=== PATIENT | male | born 1965 | race African-American/Black ===

== ENCOUNTER 2021-06-14 09:13 | Inpatient (IN) | payer OTHER ==
[2021-06-14] MEDS ORDERED: MELATONIN 5 MG TABLETS PO PRN (10:22)
[2021-06-14] MEDS ORDERED: BISMUTH SUBSALICYLATE 524 MG/30 ML PO PRN (10:22)
[2021-06-14] MEDS ORDERED: ACETAMINOPHEN 325 MG TABLET (FP) PO PRN ×2 (10:22)
[2021-06-14] MEDS ORDERED: MAG HYDROX/AL HYDROX/SIMETH 30 ML UNIT-DOSE CUP PO PRN (10:22)
[2021-06-14] MEDS ORDERED: ONDANSETRON *ODT* 4 MG TABLET SL PRN (10:22)
[2021-06-14] MEDS ORDERED: LOPERAMIDE HCL 2 MG CAPSULE PO PRN (10:22)
[2021-06-14] MEDS ORDERED: DICYCLOMINE HCL 10 MG CAPSULE PO PRN (10:22)
[2021-06-14] MEDS ORDERED: MAGNESIUM CITRATE 300 ML BOTTLE PO PRN (10:22)
[2021-06-14] MEDS ORDERED: MAGNESIUM HYDROX 2400MG/30ML ORAL SUSPENSION 30 ML CUP PO PRN (10:22)
[2021-06-14] MEDS ORDERED: BENZOCAINE/MENTHOL (CHLORASEPTIC ) LOZENGE MM PRN (10:22)
[2021-06-14] MEDS ORDERED: hydrOXYzine PAMOATE 25 MG CAPSULE (FP) PO PRN ×2 (10:22→18:05)
[2021-06-14] MEDS ORDERED: IBUPROFEN 400 MG TABLET (FP) PO PRN (10:22)
[2021-06-14] MEDS ORDERED: METHOCARBAMOL 500 MG TABLET PO PRN (10:22)
[2021-06-14] MEDS ORDERED: diazePAM 5 MG TABLET PO PRN (10:24)
[2021-06-14 10:53] VITALS: BMI 18.3
[2021-06-14] MEDS: INSULIN SLIDING SCALE (NOVOLOG) 1 VIAL SQ SCH ×3 (14:14→22:46)
[2021-06-14] MEDS ORDERED: OLANZapine 10 MG TABLET PO SCH (22:00)
[2021-06-14] MEDS ORDERED: THIAMINE HCL 100 MG TABLET (FP) PO SCH (22:00)
[2021-06-14] MEDS ORDERED: INSULIN (LEVEMIR) 100 UNITS/ML UNITS SQ SCH (22:00)
[2021-06-15] MEDS: INSULIN SLIDING SCALE (NOVOLOG) 1 VIAL SQ SCH ×2 (06:51→11:54)
[2021-06-15] MEDS ORDERED: diazePAM 5 MG TABLET PO PRN (09:02)
[2021-06-15] MEDS ORDERED: SERTRALINE HCL 50 MG TABLET (FP) PO SCH (10:00)
[2021-06-15] MEDS ORDERED: PRENATAL VITAMINS W/ FOLIC ACID TABLET (FP) PO SCH (10:00)
[2021-06-15] MEDS ORDERED: diazePAM 5 MG TABLET PO SCH (11:00)
[2021-06-15] MEDS: diazePAM 5 MG TABLET PO SCH ×2 (11:04→18:54)
[2021-06-15 11:31] LABS: HEMATOCRIT 39.2 % (35.4-49); HEMOGLOBIN 13.3 GM/dL (11.7-16.9); MCH 30.7 pg (25.7-33.7); MEAN CELL VOLUME 90.2 fl (80-96); MEAN PLT VOLUME 10.5 fl (7.5-11.1); PLATELET COUNT 69 10^3/uL (134-434); RBC 4.35 M/mm3 (4.00-5.60); RDW 16.1 % (11.9-15.9); WHITE BLOOD COUNT 3.7 K/mm3 (4.0-10.0)
[2021-06-15 11:46] LABS: ALBUMIN 2.9 g/dl (3.4-5.0); BLOOD UREA NITROGEN 12.4 mg/dL (7-18); CALCIUM 9.1 mg/dL (8.5-10.1)
[2021-06-15 11:49] LABS: CREATININE 1.1 mg/dL (0.55-1.3)
[2021-06-15 11:50] LABS: BILIRUBIN,TOTAL 4.8 mg/dL (0.2-1); TOT PROT 6.1 g/dl (6.4-8.2)
[2021-06-15] MEDS ORDERED: POTASSIUM CHLORIDE ORAL LIQUID 20 MEQ/15 ML PO ONE ×2 (15:00→19:00)
[2021-06-15] MEDS ORDERED: ALBUTEROL SO4 HFA INHALER IH PRN (15:31)
[2021-06-15] MEDS ORDERED: ALBUTEROL SO4 0.083% IH SOL 2.5 MG/3 ML VIAL.NEB. NEB PRN (15:35)
[2021-06-15 15:46] VITALS: BP 124/80; PULSE 90; TEMP 97.5
[2021-06-15] MEDS ORDERED: INSULIN SLIDING SCALE (NOVOLOG) 1 VIAL SQ SCH (16:30)
[2021-06-16] MEDS ORDERED: diazePAM 5 MG TABLET PO SCH ×2 (06:00)
[2021-06-17] MEDS ORDERED: diazePAM 5 MG TABLET PO SCH ×2 (06:00)
[2021-06-18] MEDS ORDERED: diazePAM 5 MG TABLET PO ONE ×2 (06:00)
== END 2021-06-15 23:55 | disposition short-term general hospital (02) | DRG 775 ==
LOC: YASAS 09:13 → Y6N 10:59 → UNDOADMIN 10:59 → Y6N 17:23
PROVIDERS: ADMIT Allergy & Immunology; ATTEND Allergy & Immunology
PROC: HZ2ZZZZ Detoxification Services for Substance Abuse Treatment (ICD-10-PCS; principal; 2021-06-14)
DX: F10.230 Alcohol dependence with withdrawal, uncomplicated (principal); F10.220 Alcohol dependence with intoxication, uncomplicated; F17.210 Nicotine dependence, cigarettes, uncomplicated; F20.9 Schizophrenia, unspecified; R17 Unspecified jaundice; E11.65 Type 2 diabetes mellitus with hyperglycemia; Z79.4 Long term (current) use of insulin; R06.00 Dyspnea, unspecified; R05.9 Cough, unspecified; R10.11 Right upper quadrant pain; Z62.810 Personal history of physical and sexual abuse in childhood; Z91.410 Personal history of adult physical and sexual abuse; Z91.014 Allergy to mammalian meats; Z59.01 Sheltered homelessness
CPT/HCPCS: 36415; 71101-TC-RT-FY; 80053; 82962; 85027; 86780; 87811; 93005; 93010; C9803-CS; U0003; U0005

== ENCOUNTER 2021-06-15 16:56 | Inpatient (IN) | payer OTHER ==
[2021-06-15] MEDS ORDERED: SODIUM CHLORIDE 0.9% 500 ML INFUS.BAG IV ONE (18:41)
[2021-06-15 19:57] LABS: VENOUS BASE EXCESS 0.7 mmol/L (-2-2); VENOUS O2 SATURATION 39.5 % (70-80); VENOUS PCO2 47.7 mmHg (38-52); VENOUS PH 7.365 (7.310-7.410)
[2021-06-15 20:00] LABS: BASO % 0.4 % (0-2.0); EOS % 0.7 % (0-4.5); HEMOGLOBIN 13.4 GM/dL (11.7-16.9); LYMPH % 35.4 % (8-40); MCHC 34.3 g/dl (32.0-35.9); MEAN CELL VOLUME 90.3 fl (80-96); MEAN PLT VOLUME 10.2 fl (7.5-11.1); MONO % 10.6 % (3.8-10.2); NEUT % 52.9 % (42.8-82.8); PLATELET COUNT 37 10^3/uL (134-434); RBC 4.33 M/mm3 (4.00-5.60); RDW 16.5 % (11.9-15.9); WHITE BLOOD COUNT 2.7 K/mm3 (4.0-10.0)
[2021-06-15 20:05] LABS: INR 1.36 (0.83-1.09); PROTHROMBIN TIME (PATIENT) 15.7 SEC (9.7-13.0)
[2021-06-15 20:08] LABS: ACTIVATED PTT 32.8 SECONDS (25.2-36.5)
[2021-06-15 20:26] LABS: ALBUMIN 3.2 g/dl (3.4-5.0); BLOOD UREA NITROGEN 10.7 mg/dL (7-18); CALCIUM 9.3 mg/dL (8.5-10.1)
[2021-06-15 20:27] LABS: MAGNESIUM 1.5 mg/dL (1.8-2.4)
[2021-06-15 20:29] LABS: CREATININE 1.2 mg/dL (0.55-1.3)
[2021-06-15 20:31] LABS: BILIRUBIN,TOTAL 5.4 mg/dL (0.2-1); TOT PROT 6.1 g/dl (6.4-8.2)
[2021-06-15] MEDS ORDERED: MAGNESIUM SULF 50% (8.12 MEQ/2 ML-1 GM VIAL) IVPB ONE (20:59)
[2021-06-15] MEDS ORDERED: MAGNESIUM SULFATE IN WATER 2 GM/50 ML IVPB IVPB ONE (21:54)
[2021-06-16 00:50] LABS: URINE APPEARANCE CLEAR; URINE BILIRUBIN 1+ (NEGATIVE); URINE COLOR DK YELLOW; URINE GLUCOSE (UA) 2+ (NEGATIVE); URINE KETONE 2+ (NEGATIVE); URINE LEUK ESTERASE NEGATIVE (NEGATIVE); URINE NITRITE NEGATIVE (NEGATIVE); URINE PROTEIN TRACE (NEGATIVE)
[2021-06-16] MEDS ORDERED: ONDANSETRON 4 MG/2 ML VIAL IVPUSH PRN (01:15)
[2021-06-16] MEDS ORDERED: LACTATED RINGERS SOLUTION 1,000 ML IV SCH (01:15)
[2021-06-16] MEDS ORDERED: INSULIN (LEVEMIR) 100 UNITS/ML UNITS SQ ONE ×2 (01:58→21:59)
[2021-06-16] MEDS ORDERED: INSULIN (NOVOLOG) ASPART 100 UNITS/ML 10ML VIAL SQ ONE (01:59)
[2021-06-16] MEDS: LIDOCAINE 5% TOPICAL PATCH TP SCH ×2 (02:21→11:00)
[2021-06-16 06:56] LABS: CALCIUM 8.5 mg/dL (8.5-10.1); MAGNESIUM 1.6 mg/dL (1.8-2.4)
[2021-06-16 06:58] LABS: BILIRUBIN,DIRECT 3.2 mg/dL (0.0-0.2)
[2021-06-16 07:00] LABS: BILIRUBIN,TOTAL 4.7 mg/dL (0.2-1)
[2021-06-16] MEDS ORDERED: INSULIN (NOVOLOG) ASPART 100 UNITS/ML 10ML VIAL SQ SCH (07:00)
[2021-06-16 07:01] LABS: PHOSPHOROUS 2.1 mg/dL (2.5-4.9); TOT PROT 5.8 g/dl (6.4-8.2)
[2021-06-16 07:02] LABS: BILIRUBIN,TOTAL 5.2 mg/dL (0.2-1)
[2021-06-16] MEDS: INSULIN SLIDING SCALE (NOVOLOG) 1 VIAL SQ SCH ×4 (07:39→22:25)
[2021-06-16 07:42] LABS: BASO % 0.5 % (0-2.0); EOS % 1.4 % (0-4.5); HEMATOCRIT 36.5 % (35.4-49); HEMOGLOBIN 12.6 GM/dL (11.7-16.9); LYMPH % 44.3 % (8-40); MCH 31.1 pg (25.7-33.7); MCHC 34.4 g/dl (32.0-35.9); MEAN CELL VOLUME 90.5 fl (80-96); MEAN PLT VOLUME 10.6 fl (7.5-11.1); MONO % 7.9 % (3.8-10.2); NEUT % 45.9 % (42.8-82.8); PLATELET COUNT 49 10^3/uL (134-434); RBC 4.04 M/mm3 (4.00-5.60); RDW 16.3 % (11.9-15.9); WHITE BLOOD COUNT 3.2 K/mm3 (4.0-10.0)
[2021-06-16] MEDS ORDERED: DEXTROSE 50%-WATER - 25 GM/50 ML VIAL IVPUSH ONE (07:46)
[2021-06-16] MEDS ORDERED: DEXTROSE 50%-WATER 25 GM/50 ML DISP.SYRIN ONE (07:48)
[2021-06-16 07:53] LABS: HIV INTERPRETATION NEGATIVE (NEGATIVE)
[2021-06-16] MEDS ORDERED: DEXTROSE 5%-0.45% SALINE 1,000 ML IV SCH (08:00)
[2021-06-16] MEDS ORDERED: MAGNESIUM SULF 50% (8.12 MEQ/2 ML-1 GM VIAL) IVPB ONE (08:30)
[2021-06-16] MEDS ORDERED: MAGNESIUM SULF 50% (8.12 MEQ/2 ML-1 GM VIAL) ONE (09:01)
[2021-06-16] MEDS ORDERED: THIAMINE HCL 100 MG TABLET (FP) ONE (09:20)
[2021-06-16] MEDS ORDERED: SERTRALINE HCL 50 MG TABLET (FP) ONE ×2 (09:20→09:29)
[2021-06-16] MEDS ORDERED: FOLIC ACID 1 MG TABLET (FP) ONE (09:20)
[2021-06-16] MEDS: THIAMINE HCL 100 MG TABLET (FP) PO SCH (09:30)
[2021-06-16] MEDS: SERTRALINE HCL 50 MG TABLET (FP) PO SCH (09:30)
[2021-06-16] MEDS: FOLIC ACID 1 MG TABLET (FP) PO SCH (09:30)
[2021-06-16] MEDS ORDERED: INSULIN (LEVEMIR) 100 UNITS/ML UNITS SQ SCH (10:00)
[2021-06-16] MEDS ORDERED: LIDOCAINE 5% TOPICAL PATCH ONE (10:56)
[2021-06-16] MEDS ORDERED: GABAPENTIN 300 MG CAPSULE ONE ×2 (13:54→14:25)
[2021-06-16] MEDS: GABAPENTIN 300 MG CAPSULE PO SCH ×2 (14:28→22:13)
[2021-06-16] MEDS: LORazepam 2 MG/ML SDV VIAL IVPUSH PRN (14:37)
[2021-06-16] MEDS ORDERED: INSULIN (NOVOLOG) ASPART 100 UNITS/ML 10ML VIAL ONE (21:59)
[2021-06-16] MEDS: OLANZapine 10 MG TABLET PO SCH (22:13)
[2021-06-16] MEDS: LIDOCAINE PATCH REMOVAL MC SCH (22:26)
[2021-06-17] MEDS: LORazepam 2 MG/ML SDV VIAL IVPUSH PRN ×2 (01:51→09:04)
[2021-06-17] MEDS ORDERED: HALOPERIDOL LACTATE 5 MG/ML IM ONE ×2 (03:19)
[2021-06-17] MEDS: GABAPENTIN 300 MG CAPSULE PO SCH ×3 (06:05→23:00)
[2021-06-17] MEDS: INSULIN SLIDING SCALE (NOVOLOG) 1 VIAL SQ SCH ×4 (06:09→23:10)
[2021-06-17] MEDS: FOLIC ACID 1 MG TABLET (FP) PO SCH (09:03)
[2021-06-17] MEDS: NICOTINE 14 MG/24 HOURS TOPICAL PATCH TD SCH (09:03)
[2021-06-17] MEDS: SERTRALINE HCL 50 MG TABLET (FP) PO SCH (09:03)
[2021-06-17] MEDS: PANTOPRAZOLE 20 MG TABLET PO SCH (09:03)
[2021-06-17] MEDS: THIAMINE HCL 100 MG TABLET (FP) PO SCH (09:03)
[2021-06-17] MEDS: INSULIN (LEVEMIR) 100 UNITS/ML UNITS SQ SCH (09:04)
[2021-06-17] MEDS: LIDOCAINE 5% TOPICAL PATCH TP SCH (09:04)
[2021-06-17] MEDS ORDERED: LORazepam 1 MG TABLET PO PRN (09:41)
[2021-06-17] MEDS: LORazepam 1 MG TABLET PO SCH ×2 (11:06→16:54)
[2021-06-17 11:22] LABS: BASO % 0.4 % (0-2.0); EOS % 0.7 % (0-4.5); HEMATOCRIT 35.9 % (35.4-49); HEMOGLOBIN 12.3 GM/dL (11.7-16.9); MCH 31.4 pg (25.7-33.7); MCHC 34.3 g/dl (32.0-35.9); MEAN CELL VOLUME 91.6 fl (80-96); MEAN PLT VOLUME 10.7 fl (7.5-11.1); MONO % 9.7 % (3.8-10.2); NEUT % 64.2 % (42.8-82.8); PLATELET COUNT 50 10^3/uL (134-434); RBC 3.93 M/mm3 (4.00-5.60); RDW 16.2 % (11.9-15.9); WHITE BLOOD COUNT 3.4 K/mm3 (4.0-10.0)
[2021-06-17 11:24] LABS: CALCIUM 9.4 mg/dL (8.5-10.1); INR 1.17 (0.83-1.09); PROTHROMBIN TIME (PATIENT) 13.5 SEC (9.7-13.0)
[2021-06-17 11:25] LABS: BLOOD UREA NITROGEN 10.3 mg/dL (7-18); MAGNESIUM 1.7 mg/dL (1.8-2.4)
[2021-06-17 11:28] LABS: BILIRUBIN,DIRECT 1.9 mg/dL (0.0-0.2); CREATININE 1.1 mg/dL (0.55-1.3)
[2021-06-17 11:29] LABS: BILIRUBIN,TOTAL 3.6 mg/dL (0.2-1)
[2021-06-17 11:30] LABS: TOT PROT 6.4 g/dl (6.4-8.2)
[2021-06-17 12:01] VITALS: BMI 19.2
[2021-06-17] MEDS: KCL 10 MEQ IVPB 10 MEQ/100 ML INFUS.BAG IVPB SCH ×3 (12:26→14:38)
[2021-06-17] MEDS ORDERED: MAGNESIUM SULF 50% (8.12 MEQ/2 ML-1 GM VIAL) IVPB ONE (14:40)
[2021-06-17] MEDS ORDERED: DEXTROSE 50%-WATER - 25 GM/50 ML VIAL IVPUSH ONE (18:24)
[2021-06-17] MEDS ORDERED: DEXTROSE 50%-WATER 25 GM/50 ML DISP.SYRIN ONE (18:27)
[2021-06-17] MEDS: DEXTROSE 5%-NORMAL SALINE 1,000 ML IV SCH (18:29)
[2021-06-17] MEDS: OLANZapine 10 MG TABLET PO SCH (23:01)
[2021-06-17] MEDS: LIDOCAINE PATCH REMOVAL MC SCH (23:12)
[2021-06-18] MEDS: LORazepam 1 MG TABLET PO SCH ×5 (00:11→22:43)
[2021-06-18] MEDS: LORazepam 2 MG/ML SDV VIAL IVPUSH PRN ×2 (03:27→09:31)
[2021-06-18] MEDS: GABAPENTIN 300 MG CAPSULE PO SCH ×3 (05:56→22:43)
[2021-06-18] MEDS: INSULIN SLIDING SCALE (NOVOLOG) 1 VIAL SQ SCH ×4 (06:02→22:44)
[2021-06-18 08:16] LABS: BASO % 0.5 % (0-2.0); EOS % 1.5 % (0-4.5); HEMATOCRIT 36.1 % (35.4-49); HEMOGLOBIN 12.2 GM/dL (11.7-16.9); LYMPH % 39.6 % (8-40); MCH 31.1 pg (25.7-33.7); MCHC 33.9 g/dl (32.0-35.9); MEAN CELL VOLUME 91.8 fl (80-96); MEAN PLT VOLUME 10.4 fl (7.5-11.1); MONO % 8.9 % (3.8-10.2); NEUT % 49.5 % (42.8-82.8); PLATELET COUNT 58 10^3/uL (134-434); RBC 3.93 M/mm3 (4.00-5.60); RDW 16.1 % (11.9-15.9); WHITE BLOOD COUNT 3.4 K/mm3 (4.0-10.0)
[2021-06-18 08:32] LABS: CALCIUM 9.2 mg/dL (8.5-10.1)
[2021-06-18 08:34] LABS: ALBUMIN 2.9 g/dl (3.4-5.0); BLOOD UREA NITROGEN 5.6 mg/dL (7-18); MAGNESIUM 1.8 mg/dL (1.8-2.4)
[2021-06-18 08:37] LABS: CREATININE 0.9 mg/dL (0.55-1.3)
[2021-06-18 08:39] LABS: BILIRUBIN,TOTAL 2.5 mg/dL (0.2-1)
[2021-06-18] MEDS: PANTOPRAZOLE 20 MG TABLET PO SCH (09:21)
[2021-06-18] MEDS: THIAMINE HCL 100 MG TABLET (FP) PO SCH (09:22)
[2021-06-18] MEDS: FOLIC ACID 1 MG TABLET (FP) PO SCH (09:22)
[2021-06-18] MEDS: LIDOCAINE 5% TOPICAL PATCH TP SCH (09:22)
[2021-06-18] MEDS: SERTRALINE HCL 50 MG TABLET (FP) PO SCH (09:22)
[2021-06-18] MEDS: NICOTINE 14 MG/24 HOURS TOPICAL PATCH TD SCH (09:22)
[2021-06-18] MEDS: MULTIVIT-MINERALS ORAL LIQUID PO SCH (09:23)
[2021-06-18] MEDS: DEXTROSE 5%-NORMAL SALINE 1,000 ML IV SCH (20:08)
[2021-06-18] MEDS: LIDOCAINE PATCH REMOVAL MC SCH (22:43)
[2021-06-18] MEDS: OLANZapine 10 MG TABLET PO SCH (22:43)
[2021-06-18] MEDS: INSULIN (LEVEMIR) 100 UNITS/ML UNITS SQ SCH (22:44)
[2021-06-19] MEDS: LORazepam 1 MG TABLET PO SCH ×4 (05:51→22:02)
[2021-06-19] MEDS: INSULIN (LEVEMIR) 100 UNITS/ML UNITS SQ SCH ×2 (06:30→22:13)
[2021-06-19] MEDS: INSULIN SLIDING SCALE (NOVOLOG) 1 VIAL SQ SCH ×4 (06:30→22:11)
[2021-06-19] MEDS: GABAPENTIN 300 MG CAPSULE PO SCH ×3 (06:30→22:00)
[2021-06-19 08:40] LABS: BASO % 0.7 % (0-2.0); EOS % 2.5 % (0-4.5); HEMATOCRIT 39.4 % (35.4-49); MCH 30.5 pg (25.7-33.7); MEAN CELL VOLUME 92.4 fl (80-96); MEAN PLT VOLUME 9.4 fl (7.5-11.1); MONO % 10.8 % (3.8-10.2); PLATELET COUNT 91 10^3/uL (134-434); RBC 4.26 M/mm3 (4.00-5.60); RDW 15.9 % (11.9-15.9)
[2021-06-19 08:42] LABS: INR 1.13 (0.83-1.09)
[2021-06-19 09:00] LABS: ALBUMIN 3.2 g/dl (3.4-5.0); CALCIUM 9.2 mg/dL (8.5-10.1); MAGNESIUM 1.8 mg/dL (1.8-2.4)
[2021-06-19 09:02] LABS: ALBUMIN 3.1 g/dl (3.4-5.0)
[2021-06-19 09:04] LABS: BILIRUBIN,DIRECT 1.2 mg/dL (0.0-0.2); TOT PROT 6.4 g/dl (6.4-8.2)
[2021-06-19 09:05] LABS: CREATININE 0.8 mg/dL (0.55-1.3); TOT PROT 6.3 g/dl (6.4-8.2)
[2021-06-19 09:06] LABS: BILIRUBIN,TOTAL 2.3 mg/dL (0.2-1); BILIRUBIN,TOTAL 2.4 mg/dL (0.2-1)
[2021-06-19] MEDS: MULTIVIT-MINERALS ORAL LIQUID PO SCH (09:13)
[2021-06-19] MEDS: SERTRALINE HCL 50 MG TABLET (FP) PO SCH ×2 (09:14→10:31)
[2021-06-19] MEDS: NICOTINE 14 MG/24 HOURS TOPICAL PATCH TD SCH ×2 (09:15→10:30)
[2021-06-19] MEDS: LIDOCAINE 5% TOPICAL PATCH TP SCH ×2 (09:15→10:30)
[2021-06-19] MEDS: THIAMINE HCL 100 MG TABLET (FP) PO SCH ×2 (09:15→10:30)
[2021-06-19] MEDS: FOLIC ACID 1 MG TABLET (FP) PO SCH ×2 (09:15→10:30)
[2021-06-19] MEDS: PANTOPRAZOLE 20 MG TABLET PO SCH ×2 (09:15→10:30)
[2021-06-19 15:59] LABS: INR 1.21 (0.83-1.09)
[2021-06-19] MEDS ORDERED: INSULIN (LEVEMIR) 100 UNITS/ML UNITS SQ ONE (21:17)
[2021-06-19] MEDS: DEXTROSE 5%-NORMAL SALINE 1,000 ML IV SCH (22:00)
[2021-06-19] MEDS: OLANZapine 10 MG TABLET PO SCH (22:00)
[2021-06-19] MEDS: LIDOCAINE PATCH REMOVAL MC SCH (22:12)
[2021-06-20] MEDS ORDERED: LORazepam 0.5 MG TABLET PO PRN
[2021-06-20] MEDS: LORazepam 0.5 MG TABLET PO SCH ×4 (04:05→22:11)
[2021-06-20] MEDS: INSULIN (LEVEMIR) 100 UNITS/ML UNITS SQ SCH ×2 (06:11→22:13)
[2021-06-20] MEDS: GABAPENTIN 300 MG CAPSULE PO SCH ×3 (06:11→22:13)
[2021-06-20] MEDS: INSULIN SLIDING SCALE (NOVOLOG) 1 VIAL SQ SCH ×4 (06:23→22:14)
[2021-06-20 10:17] LABS: BASO % 0.7 % (0-2.0); EOS % 1.4 % (0-4.5); HEMATOCRIT 33.3 % (35.4-49); HEMOGLOBIN 11.5 GM/dL (11.7-16.9); LYMPH % 52.8 % (8-40); MCH 31.6 pg (25.7-33.7); MCHC 34.4 g/dl (32.0-35.9); MEAN CELL VOLUME 91.9 fl (80-96); MEAN PLT VOLUME 9.1 fl (7.5-11.1); MONO % 13.7 % (3.8-10.2); NEUT % 31.4 % (42.8-82.8); PLATELET COUNT 106 10^3/uL (134-434); RBC 3.63 M/mm3 (4.00-5.60); RDW 15.7 % (11.9-15.9); WHITE BLOOD COUNT 3.9 K/mm3 (4.0-10.0)
[2021-06-20] MEDS: THIAMINE HCL 100 MG TABLET (FP) PO SCH (10:52)
[2021-06-20] MEDS: SERTRALINE HCL 50 MG TABLET (FP) PO SCH (10:52)
[2021-06-20] MEDS: FOLIC ACID 1 MG TABLET (FP) PO SCH (10:52)
[2021-06-20] MEDS: MULTIVIT-MINERALS ORAL LIQUID PO SCH (10:54)
[2021-06-20] MEDS: LIDOCAINE 5% TOPICAL PATCH TP SCH (10:55)
[2021-06-20] MEDS: PANTOPRAZOLE 20 MG TABLET PO SCH (10:55)
[2021-06-20] MEDS: NICOTINE 14 MG/24 HOURS TOPICAL PATCH TD SCH (10:58)
[2021-06-20] MEDS ORDERED: LACTULOSE 20 GM/30 ML UDC (FOR ORAL USE ONLY) PO PRN (13:39)
[2021-06-20 17:10] LABS: INR 1.19 (0.83-1.09); PROTHROMBIN TIME (PATIENT) 13.7 SEC (9.7-13.0)
[2021-06-20] MEDS: DEXTROSE 5%-NORMAL SALINE 1,000 ML IV SCH ×2 (18:07→22:11)
[2021-06-20] MEDS: OLANZapine 10 MG TABLET PO SCH (22:14)
[2021-06-20] MEDS: LIDOCAINE PATCH REMOVAL MC SCH (22:23)
[2021-06-21] MEDS ORDERED: LORazepam 0.5 MG TABLET PO ONE (05:00)
[2021-06-21] MEDS: GABAPENTIN 300 MG CAPSULE PO SCH ×3 (06:41→21:53)
[2021-06-21] MEDS: INSULIN (LEVEMIR) 100 UNITS/ML UNITS SQ SCH ×2 (06:42→21:54)
[2021-06-21] MEDS: INSULIN SLIDING SCALE (NOVOLOG) 1 VIAL SQ SCH ×4 (06:42→21:53)
[2021-06-21 09:12] LABS: BASO % 0.7 % (0-2.0); EOS % 1.2 % (0-4.5); HEMOGLOBIN 10.6 GM/dL (11.7-16.9); LYMPH % 45.3 % (8-40); MEAN CELL VOLUME 93.8 fl (80-96); MEAN PLT VOLUME 9.7 fl (7.5-11.1); NEUT % 36.8 % (42.8-82.8); PLATELET COUNT 118 10^3/uL (134-434); RBC 3.41 M/mm3 (4.00-5.60); RDW 16.2 % (11.9-15.9); WHITE BLOOD COUNT 4.8 K/mm3 (4.0-10.0)
[2021-06-21] MEDS: THIAMINE HCL 100 MG TABLET (FP) PO SCH (11:53)
[2021-06-21] MEDS: PANTOPRAZOLE 20 MG TABLET PO SCH (11:53)
[2021-06-21] MEDS: FOLIC ACID 1 MG TABLET (FP) PO SCH (11:53)
[2021-06-21] MEDS: SERTRALINE HCL 50 MG TABLET (FP) PO SCH (11:53)
[2021-06-21] MEDS: MULTIVIT-MINERALS ORAL LIQUID PO SCH (11:54)
[2021-06-21] MEDS: LIDOCAINE 5% TOPICAL PATCH TP SCH (11:54)
[2021-06-21] MEDS: NICOTINE 14 MG/24 HOURS TOPICAL PATCH TD SCH (11:55)
[2021-06-21] MEDS: OLANZapine 10 MG TABLET PO SCH (21:52)
[2021-06-21] MEDS: LIDOCAINE PATCH REMOVAL MC SCH (22:00)
[2021-06-22] MEDS: GABAPENTIN 300 MG CAPSULE PO SCH ×3 (06:43→21:59)
[2021-06-22] MEDS: INSULIN SLIDING SCALE (NOVOLOG) 1 VIAL SQ SCH ×4 (06:43→22:01)
[2021-06-22] MEDS: INSULIN (LEVEMIR) 100 UNITS/ML UNITS SQ SCH ×2 (06:43→21:59)
[2021-06-22 08:15] LABS: BLOOD UREA NITROGEN 11.2 mg/dL (7-18); HEMATOCRIT 32.6 % (35.4-49); HEMOGLOBIN 11.1 GM/dL (11.7-16.9); MCH 31.5 pg (25.7-33.7); MCHC 33.9 g/dl (32.0-35.9); MEAN CELL VOLUME 92.9 fl (80-96); MEAN PLT VOLUME 8.7 fl (7.5-11.1); PLATELET COUNT 176 10^3/uL (134-434); RDW 16.3 % (11.9-15.9); WHITE BLOOD COUNT 4.1 K/mm3 (4.0-10.0)
[2021-06-22 08:16] LABS: ALBUMIN 3.1 g/dl (3.4-5.0); MAGNESIUM 1.9 mg/dL (1.8-2.4)
[2021-06-22 08:19] LABS: CREATININE 1.2 mg/dL (0.55-1.3)
[2021-06-22 08:20] LABS: BILIRUBIN,TOTAL 0.8 mg/dL (0.2-1); TOT PROT 6.1 g/dl (6.4-8.2)
[2021-06-22 09:40] LABS: ANISOCYTOSIS 0; HELMET CELLS 0; HOWELL-JOLLY BODIES 0; MACROCYTOSIS 0; OVALOCYTE 0; ROULEAU 0; SICKELED CELLS 0; TARGET CELLS 0; TEAR DROP CELLS 0; TOXIC GRANULATION 0
[2021-06-22] MEDS: LIDOCAINE 5% TOPICAL PATCH TP SCH ×2 (10:09→10:24)
[2021-06-22] MEDS: FOLIC ACID 1 MG TABLET (FP) PO SCH (10:09)
[2021-06-22] MEDS: NICOTINE 14 MG/24 HOURS TOPICAL PATCH TD SCH ×2 (10:09→10:10)
[2021-06-22] MEDS: MULTIVIT-MINERALS ORAL LIQUID PO SCH (10:10)
[2021-06-22] MEDS: SERTRALINE HCL 50 MG TABLET (FP) PO SCH (10:10)
[2021-06-22] MEDS: PANTOPRAZOLE 20 MG TABLET PO SCH (10:10)
[2021-06-22] MEDS: THIAMINE HCL 100 MG TABLET (FP) PO SCH (10:10)
[2021-06-22] MEDS: OLANZapine 10 MG TABLET PO SCH (21:59)
[2021-06-22] MEDS: LIDOCAINE PATCH REMOVAL MC SCH (22:03)
[2021-06-23] MEDS: GABAPENTIN 300 MG CAPSULE PO SCH ×3 (06:32→22:23)
[2021-06-23] MEDS: INSULIN SLIDING SCALE (NOVOLOG) 1 VIAL SQ SCH ×4 (08:02→22:24)
[2021-06-23] MEDS: INSULIN (LEVEMIR) 100 UNITS/ML UNITS SQ SCH ×2 (08:03→22:26)
[2021-06-23 08:13] LABS: HEMATOCRIT 33.6 % (35.4-49); HEMOGLOBIN 10.8 GM/dL (11.7-16.9); MCH 30.4 pg (25.7-33.7); MCHC 32.3 g/dl (32.0-35.9); MEAN CELL VOLUME 94.1 fl (80-96); MEAN PLT VOLUME 9.3 fl (7.5-11.1); PLATELET COUNT 199 10^3/uL (134-434); RBC 3.57 M/mm3 (4.00-5.60); RDW 16.7 % (11.9-15.9); WHITE BLOOD COUNT 4.7 K/mm3 (4.0-10.0)
[2021-06-23 08:29] LABS: CALCIUM 9.1 mg/dL (8.5-10.1)
[2021-06-23 08:30] LABS: BLOOD UREA NITROGEN 9.4 mg/dL (7-18); MAGNESIUM 1.9 mg/dL (1.8-2.4)
[2021-06-23 08:33] LABS: CREATININE 1.1 mg/dL (0.55-1.3)
[2021-06-23 08:34] LABS: BILIRUBIN,TOTAL 0.7 mg/dL (0.2-1)
[2021-06-23 09:47] LABS: ANISOCYTOSIS 1+; MACROCYTOSIS 1+
[2021-06-23] MEDS: MULTIVIT-MINERALS ORAL LIQUID PO SCH (10:24)
[2021-06-23] MEDS: NICOTINE 14 MG/24 HOURS TOPICAL PATCH TD SCH (10:24)
[2021-06-23] MEDS: SERTRALINE HCL 50 MG TABLET (FP) PO SCH (10:24)
[2021-06-23] MEDS: PANTOPRAZOLE 20 MG TABLET PO SCH (10:24)
[2021-06-23] MEDS: FOLIC ACID 1 MG TABLET (FP) PO SCH (10:24)
[2021-06-23] MEDS: THIAMINE HCL 100 MG TABLET (FP) PO SCH (10:24)
[2021-06-23] MEDS: LIDOCAINE 5% TOPICAL PATCH TP SCH (10:25)
[2021-06-23] MEDS: OLANZapine 10 MG TABLET PO SCH (22:23)
[2021-06-23] MEDS: LIDOCAINE PATCH REMOVAL MC SCH (22:27)
[2021-06-24] MEDS: GABAPENTIN 300 MG CAPSULE PO SCH ×3 (06:30→22:19)
[2021-06-24] MEDS: INSULIN (LEVEMIR) 100 UNITS/ML UNITS SQ SCH ×2 (06:31→22:21)
[2021-06-24] MEDS: INSULIN SLIDING SCALE (NOVOLOG) 1 VIAL SQ SCH ×4 (06:31→22:22)
[2021-06-24 07:37] LABS: HEMATOCRIT 33.1 % (35.4-49); HEMOGLOBIN 11.3 GM/dL (11.7-16.9); MCH 31.6 pg (25.7-33.7); MEAN CELL VOLUME 92.8 fl (80-96); MEAN PLT VOLUME 7.9 fl (7.5-11.1); PLATELET COUNT 244 10^3/uL (134-434); RBC 3.57 M/mm3 (4.00-5.60); RDW 16.5 % (11.9-15.9); WHITE BLOOD COUNT 4.6 K/mm3 (4.0-10.0)
[2021-06-24 08:07] LABS: BLOOD UREA NITROGEN 12.2 mg/dL (7-18); CALCIUM 9.4 mg/dL (8.5-10.1); MAGNESIUM 1.9 mg/dL (1.8-2.4)
[2021-06-24 08:12] LABS: BILIRUBIN,TOTAL 0.5 mg/dL (0.2-1); TOT PROT 6.4 g/dl (6.4-8.2)
[2021-06-24 09:15] LABS: ANISOCYTOSIS 0; MACROCYTOSIS 1+; OVALOCYTE 1+
[2021-06-24] MEDS: FOLIC ACID 1 MG TABLET (FP) PO SCH (09:49)
[2021-06-24] MEDS: PANTOPRAZOLE 20 MG TABLET PO SCH (09:49)
[2021-06-24] MEDS: NICOTINE 14 MG/24 HOURS TOPICAL PATCH TD SCH (09:49)
[2021-06-24] MEDS: LIDOCAINE 5% TOPICAL PATCH TP SCH (09:49)
[2021-06-24] MEDS: THIAMINE HCL 100 MG TABLET (FP) PO SCH (09:49)
[2021-06-24] MEDS: SERTRALINE HCL 50 MG TABLET (FP) PO SCH (09:49)
[2021-06-24] MEDS: MULTIVIT-MINERALS ORAL LIQUID PO SCH (09:49)
[2021-06-24 12:08] LABS: SARS-CoV-2 NAA Not Detected (Not Detected)
[2021-06-24] MEDS: OLANZapine 10 MG TABLET PO SCH (22:19)
[2021-06-24] MEDS: LIDOCAINE PATCH REMOVAL MC SCH (22:22)
[2021-06-25] MEDS ORDERED: GlUCAGON HUMAN RECOMBINANT 1 MG/VIAL IM ONE (00:28)
[2021-06-25] MEDS: GABAPENTIN 300 MG CAPSULE PO SCH ×3 (06:33→21:45)
[2021-06-25] MEDS: INSULIN SLIDING SCALE (NOVOLOG) 1 VIAL SQ SCH ×4 (06:34→21:48)
[2021-06-25] MEDS: INSULIN (LEVEMIR) 100 UNITS/ML UNITS SQ SCH (06:34)
[2021-06-25] MEDS: LIDOCAINE 5% TOPICAL PATCH TP SCH (09:57)
[2021-06-25] MEDS: FOLIC ACID 1 MG TABLET (FP) PO SCH (09:58)
[2021-06-25] MEDS: SERTRALINE HCL 50 MG TABLET (FP) PO SCH (09:58)
[2021-06-25] MEDS: THIAMINE HCL 100 MG TABLET (FP) PO SCH (09:58)
[2021-06-25] MEDS: PANTOPRAZOLE 20 MG TABLET PO SCH (09:58)
[2021-06-25] MEDS: NICOTINE 14 MG/24 HOURS TOPICAL PATCH TD SCH (09:59)
[2021-06-25] MEDS: MULTIVIT-MINERALS ORAL LIQUID PO SCH (09:59)
[2021-06-25] MEDS: LIDOCAINE PATCH REMOVAL MC SCH (21:45)
[2021-06-25] MEDS: OLANZapine 10 MG TABLET PO SCH (21:46)
[2021-06-26 05:41] VITALS: BP 107/70; PULSE 91; TEMP 98.6
[2021-06-26] MEDS: GABAPENTIN 300 MG CAPSULE PO SCH ×2 (06:16→13:55)
[2021-06-26 08:02] LABS: HEMATOCRIT 32.2 % (35.4-49); HEMOGLOBIN 10.5 GM/dL (11.7-16.9); MCH 30.5 pg (25.7-33.7); MCHC 32.6 g/dl (32.0-35.9); MEAN CELL VOLUME 93.6 fl (80-96); MEAN PLT VOLUME 8.4 fl (7.5-11.1); PLATELET COUNT 300 10^3/uL (134-434); RBC 3.44 M/mm3 (4.00-5.60); RDW 16.3 % (11.9-15.9); WHITE BLOOD COUNT 4.6 K/mm3 (4.0-10.0)
[2021-06-26] MEDS: INSULIN SLIDING SCALE (NOVOLOG) 1 VIAL SQ SCH ×2 (08:16→12:02)
[2021-06-26 08:23] LABS: CALCIUM 8.9 mg/dL (8.5-10.1)
[2021-06-26 08:24] LABS: BLOOD UREA NITROGEN 14.3 mg/dL (7-18)
[2021-06-26 08:27] LABS: CREATININE 1.1 mg/dL (0.55-1.3)
[2021-06-26 08:28] LABS: BILIRUBIN,TOTAL 0.5 mg/dL (0.2-1)
[2021-06-26] MEDS: MULTIVIT-MINERALS ORAL LIQUID PO SCH (09:02)
[2021-06-26] MEDS: PANTOPRAZOLE 20 MG TABLET PO SCH (09:02)
[2021-06-26] MEDS: THIAMINE HCL 100 MG TABLET (FP) PO SCH (09:02)
[2021-06-26] MEDS: SERTRALINE HCL 50 MG TABLET (FP) PO SCH (09:02)
[2021-06-26] MEDS: NICOTINE 14 MG/24 HOURS TOPICAL PATCH TD SCH (09:02)
[2021-06-26] MEDS: FOLIC ACID 1 MG TABLET (FP) PO SCH (09:02)
[2021-06-26] MEDS: LIDOCAINE 5% TOPICAL PATCH TP SCH (09:03)
[2021-06-26 10:15] LABS: ANISOCYTOSIS 0; MACROCYTOSIS 1+; OVALOCYTE 1+
[2021-06-26] MEDS ORDERED: INSULIN (LEVEMIR) 100 UNITS/ML UNITS SQ SCH (22:00)
== END 2021-06-26 14:45 | disposition other institution (70) | DRG 282 ==
LOC: JER 16:56 → JERBED 23:38 → J7W 06-16 17:34
PROVIDERS: ADMIT Hospitalist; ATTEND Nurse Practitioner Family
DX: K86.89 Other specified diseases of pancreas (principal); F10.231 Alcohol dependence with withdrawal delirium; G93.41 Metabolic encephalopathy; K70.10 Alcoholic hepatitis without ascites; E11.65 Type 2 diabetes mellitus with hyperglycemia; F25.9 Schizoaffective disorder, unspecified; E80.6 Other disorders of bilirubin metabolism; F17.210 Nicotine dependence, cigarettes, uncomplicated; R74.01 Elevation of levels of liver transaminase levels; S22.31XA Fracture of one rib, right side, initial encounter for closed fracture; K86.0 Alcohol-induced chronic pancreatitis; D69.6 Thrombocytopenia, unspecified; W19.XXXA Unspecified fall, initial encounter; Y93.9 Activity, unspecified; Y92.89 Other specified places as the place of occurrence of the external cause; Y99.9 Unspecified external cause status
CPT/HCPCS: 36415; 70450-TC; 71046-TC-FY; 74018-TC-FY; 74181-TC; 76705-TC; 80048; 80053; 80061; 80076; 81003; 82010; 82105; 82140; 82550; 82553; 82728; 82803; 82962; 83036; 83516; 83540; 83550; 83690; 83735; 84100; 84132; 84466; 84484; 85025; 85610; 85730; 86038; 86140; 86704; 86705; 86803; 87086; 87340; 87389; 87516; 87517; 93005; 93010; 97116-GP; 97162-GP; 99285-25; C9803-CS; U0003; U0005

== ENCOUNTER 2021-06-26 15:05 | Inpatient (IN) | payer OTHER ==
[2021-06-26] MEDS ORDERED: NICOTINE 10 MG CARTRIDGE (INHALER) IH PRN (16:41)
[2021-06-26] MEDS ORDERED: P-EPHED 60MG/TRIPROLIDI 2.5MG TABLET PO PRN (16:41)
[2021-06-26] MEDS ORDERED: MAG HYDROX/AL HYDROX/SIMETH 30 ML UNIT-DOSE CUP PO PRN (16:41)
[2021-06-26] MEDS ORDERED: guaiFENesin 200 MG/10 ML 10 ML UNIT-DOSE CUPS PO PRN (16:41)
[2021-06-26] MEDS ORDERED: MAGNESIUM CITRATE 300 ML BOTTLE PO PRN (16:41)
[2021-06-26] MEDS ORDERED: IBUPROFEN 400 MG TABLET (FP) PO PRN (16:41)
[2021-06-26] MEDS ORDERED: hydrOXYzine PAMOATE 25 MG CAPSULE (FP) PO PRN (16:41)
[2021-06-26] MEDS ORDERED: BENZOCAINE/MENTHOL (CHLORASEPTIC ) LOZENGE MM PRN (16:41)
[2021-06-26] MEDS ORDERED: ACETAMINOPHEN 325 MG TABLET (FP) PO PRN (16:41)
[2021-06-26] MEDS ORDERED: MAGNESIUM HYDROX 2400MG/30ML ORAL SUSPENSION 30 ML CUP PO PRN (16:41)
[2021-06-26] MEDS ORDERED: LOPERAMIDE HCL 2 MG CAPSULE PO PRN (16:41)
[2021-06-26] MEDS ORDERED: INSULIN (NOVOLOG) ASPART 100 UNITS/ML 10ML VIAL ONE (18:06)
[2021-06-26] MEDS ORDERED: PATIENT'S OWN MEDICATION (NON-FORMULARY) (Lidocaine Patch Removal 1 EACH Each) MC SCH (22:00)
[2021-06-26] MEDS ORDERED: INSULIN SLIDING SCALE (NOVOLOG) 1 VIAL SQ SCH (22:00)
[2021-06-26] MEDS: LIDOCAINE PATCH REMOVAL MC SCH (22:30)
[2021-06-26] MEDS: GABAPENTIN 300 MG CAPSULE PO SCH (22:32)
[2021-06-26] MEDS: MELATONIN 5 MG TABLETS PO SCH (22:32)
[2021-06-26] MEDS: THIAMINE HCL 100 MG TABLET (FP) PO SCH (22:32)
[2021-06-26] MEDS: INSULIN (LEVEMIR) 100 UNITS/ML UNITS SQ SCH (22:41)
[2021-06-26] MEDS: INSULIN SLIDING SCALE (NOVOLOG) 1 VIAL SQ SCH (22:49)
[2021-06-27] MEDS: GABAPENTIN 300 MG CAPSULE PO SCH ×3 (06:25→21:06)
[2021-06-27] MEDS: INSULIN SLIDING SCALE (NOVOLOG) 1 VIAL SQ SCH ×4 (06:26→21:03)
[2021-06-27] MEDS: LIDOCAINE 5% TOPICAL PATCH TP SCH (09:41)
[2021-06-27] MEDS: PRENATAL VITAMINS W/ FOLIC ACID TABLET (FP) PO SCH (09:42)
[2021-06-27] MEDS: NICOTINE 7 MG/24 HOURS TOPICAL PATCH TD SCH (09:42)
[2021-06-27] MEDS ORDERED: INSULIN (NOVOLOG) ASPART 100 UNITS/ML 10ML VIAL ONE ×2 (11:52→16:29)
[2021-06-27] MEDS: SERTRALINE HCL 50 MG TABLET (FP) PO SCH (16:33)
[2021-06-27] MEDS: THIAMINE HCL 100 MG TABLET (FP) PO SCH (21:01)
[2021-06-27] MEDS: MELATONIN 5 MG TABLETS PO SCH (21:01)
[2021-06-27] MEDS: LIDOCAINE PATCH REMOVAL MC SCH (21:01)
[2021-06-27] MEDS: INSULIN (LEVEMIR) 100 UNITS/ML UNITS SQ SCH (21:04)
[2021-06-27] MEDS: OLANZapine 10 MG TABLET PO SCH (21:05)
[2021-06-27] MEDS ORDERED: INSULIN (LEVEMIR) 100 UNITS/ML UNITS SQ ONE (21:37)
[2021-06-28] MEDS: GABAPENTIN 300 MG CAPSULE PO SCH ×3 (06:13→21:05)
[2021-06-28] MEDS: INSULIN SLIDING SCALE (NOVOLOG) 1 VIAL SQ SCH ×4 (07:15→21:04)
[2021-06-28] MEDS: FOLIC ACID 1 MG TABLET (FP) PO SCH (09:25)
[2021-06-28] MEDS: SERTRALINE HCL 50 MG TABLET (FP) PO SCH (09:25)
[2021-06-28] MEDS: LIDOCAINE 5% TOPICAL PATCH TP SCH (09:25)
[2021-06-28] MEDS: NICOTINE 7 MG/24 HOURS TOPICAL PATCH TD SCH (09:25)
[2021-06-28] MEDS: PRENATAL VITAMINS W/ FOLIC ACID TABLET (FP) PO SCH (09:26)
[2021-06-28] MEDS ORDERED: INSULIN (NOVOLOG) ASPART 100 UNITS/ML 10ML VIAL ONE ×2 (11:51→16:35)
[2021-06-28] MEDS: THIAMINE HCL 100 MG TABLET (FP) PO SCH (21:03)
[2021-06-28] MEDS: MELATONIN 5 MG TABLETS PO SCH (21:03)
[2021-06-28] MEDS: OLANZapine 10 MG TABLET PO SCH (21:05)
[2021-06-28] MEDS: INSULIN (LEVEMIR) 100 UNITS/ML UNITS SQ SCH (21:05)
[2021-06-28] MEDS: LIDOCAINE PATCH REMOVAL MC SCH (21:07)
[2021-06-29] MEDS: GABAPENTIN 300 MG CAPSULE PO SCH ×3 (06:31→21:13)
[2021-06-29] MEDS: INSULIN SLIDING SCALE (NOVOLOG) 1 VIAL SQ SCH ×4 (07:51→21:13)
[2021-06-29] MEDS ORDERED: INSULIN (NOVOLOG) ASPART 100 UNITS/ML 10ML VIAL ONE ×3 (07:51→16:29)
[2021-06-29] MEDS: PRENATAL VITAMINS W/ FOLIC ACID TABLET (FP) PO SCH (09:37)
[2021-06-29] MEDS: SERTRALINE HCL 50 MG TABLET (FP) PO SCH (09:37)
[2021-06-29] MEDS: NICOTINE 7 MG/24 HOURS TOPICAL PATCH TD SCH (09:37)
[2021-06-29] MEDS: LIDOCAINE 5% TOPICAL PATCH TP SCH (09:38)
[2021-06-29] MEDS: FOLIC ACID 1 MG TABLET (FP) PO SCH (09:46)
[2021-06-29] MEDS: THIAMINE HCL 100 MG TABLET (FP) PO SCH (21:11)
[2021-06-29] MEDS: MELATONIN 5 MG TABLETS PO SCH (21:11)
[2021-06-29] MEDS: INSULIN (LEVEMIR) 100 UNITS/ML UNITS SQ SCH (21:12)
[2021-06-29] MEDS: OLANZapine 10 MG TABLET PO SCH (21:13)
[2021-06-29] MEDS: LIDOCAINE PATCH REMOVAL MC SCH (21:13)
[2021-06-29] MEDS ORDERED: INSULIN (LEVEMIR) 100 UNITS/ML UNITS SQ ONE (22:06)
[2021-06-30] MEDS: GABAPENTIN 300 MG CAPSULE PO SCH ×3 (06:19→21:36)
[2021-06-30] MEDS ORDERED: INSULIN (NOVOLOG) ASPART 100 UNITS/ML 10ML VIAL ONE ×4 (06:21→22:12)
[2021-06-30] MEDS: INSULIN SLIDING SCALE (NOVOLOG) 1 VIAL SQ SCH ×4 (06:21→22:15)
[2021-06-30] MEDS: NICOTINE 7 MG/24 HOURS TOPICAL PATCH TD SCH (10:02)
[2021-06-30] MEDS: FOLIC ACID 1 MG TABLET (FP) PO SCH (10:02)
[2021-06-30] MEDS: SERTRALINE HCL 50 MG TABLET (FP) PO SCH (10:02)
[2021-06-30] MEDS: PRENATAL VITAMINS W/ FOLIC ACID TABLET (FP) PO SCH (10:02)
[2021-06-30] MEDS: LIDOCAINE 5% TOPICAL PATCH TP SCH (10:03)
[2021-06-30 17:08] LABS: SARS-CoV-2 NAA Not Detected (Not Detected)
[2021-06-30] MEDS: MELATONIN 5 MG TABLETS PO SCH (21:34)
[2021-06-30] MEDS: THIAMINE HCL 100 MG TABLET (FP) PO SCH (21:34)
[2021-06-30] MEDS: OLANZapine 10 MG TABLET PO SCH (21:36)
[2021-06-30] MEDS: LIDOCAINE PATCH REMOVAL MC SCH (21:37)
[2021-06-30] MEDS: INSULIN (LEVEMIR) 100 UNITS/ML UNITS SQ SCH (22:15)
[2021-07-01] MEDS: GABAPENTIN 300 MG CAPSULE PO SCH ×3 (06:14→21:10)
[2021-07-01] MEDS: INSULIN SLIDING SCALE (NOVOLOG) 1 VIAL SQ SCH ×4 (06:29→21:12)
[2021-07-01] MEDS: FOLIC ACID 1 MG TABLET (FP) PO SCH (09:53)
[2021-07-01] MEDS: NICOTINE 7 MG/24 HOURS TOPICAL PATCH TD SCH (09:53)
[2021-07-01] MEDS: PRENATAL VITAMINS W/ FOLIC ACID TABLET (FP) PO SCH (09:53)
[2021-07-01] MEDS: SERTRALINE HCL 50 MG TABLET (FP) PO SCH (09:53)
[2021-07-01] MEDS: LIDOCAINE 5% TOPICAL PATCH TP SCH (09:54)
[2021-07-01] MEDS ORDERED: INSULIN (NOVOLOG) ASPART 100 UNITS/ML 10ML VIAL ONE ×3 (11:52→21:47)
[2021-07-01] MEDS: THIAMINE HCL 100 MG TABLET (FP) PO SCH (21:08)
[2021-07-01] MEDS: MELATONIN 5 MG TABLETS PO SCH (21:08)
[2021-07-01] MEDS: LIDOCAINE PATCH REMOVAL MC SCH (21:10)
[2021-07-01] MEDS: INSULIN (LEVEMIR) 100 UNITS/ML UNITS SQ SCH (21:10)
[2021-07-01] MEDS: OLANZapine 10 MG TABLET PO SCH (21:13)
[2021-07-01] MEDS ORDERED: INSULIN (LEVEMIR) 100 UNITS/ML UNITS SQ ONE (21:48)
[2021-07-02] MEDS: GABAPENTIN 300 MG CAPSULE PO SCH ×3 (06:16→21:18)
[2021-07-02] MEDS: INSULIN SLIDING SCALE (NOVOLOG) 1 VIAL SQ SCH ×4 (06:29→21:17)
[2021-07-02] MEDS ORDERED: INSULIN (NOVOLOG) ASPART 100 UNITS/ML 10ML VIAL ONE ×3 (06:29→21:56)
[2021-07-02] MEDS: SERTRALINE HCL 50 MG TABLET (FP) PO SCH (09:50)
[2021-07-02] MEDS: NICOTINE 7 MG/24 HOURS TOPICAL PATCH TD SCH (09:50)
[2021-07-02] MEDS: LIDOCAINE 5% TOPICAL PATCH TP SCH (09:50)
[2021-07-02] MEDS: FOLIC ACID 1 MG TABLET (FP) PO SCH (09:50)
[2021-07-02] MEDS: PRENATAL VITAMINS W/ FOLIC ACID TABLET (FP) PO SCH (09:50)
[2021-07-02] MEDS: THIAMINE HCL 100 MG TABLET (FP) PO SCH (21:15)
[2021-07-02] MEDS: MELATONIN 5 MG TABLETS PO SCH (21:15)
[2021-07-02] MEDS: LIDOCAINE PATCH REMOVAL MC SCH (21:16)
[2021-07-02] MEDS: INSULIN (LEVEMIR) 100 UNITS/ML UNITS SQ SCH (21:17)
[2021-07-02] MEDS: OLANZapine 10 MG TABLET PO SCH (21:18)
[2021-07-02] MEDS ORDERED: INSULIN (LEVEMIR) 100 UNITS/ML UNITS SQ ONE (21:56)
[2021-07-03] MEDS: GABAPENTIN 300 MG CAPSULE PO SCH ×3 (06:12→21:22)
[2021-07-03] MEDS ORDERED: INSULIN (NOVOLOG) ASPART 100 UNITS/ML 10ML VIAL ONE ×2 (07:29→16:29)
[2021-07-03] MEDS: INSULIN SLIDING SCALE (NOVOLOG) 1 VIAL SQ SCH ×4 (07:48→21:24)
[2021-07-03] MEDS: LIDOCAINE 5% TOPICAL PATCH TP SCH (09:51)
[2021-07-03] MEDS: SERTRALINE HCL 50 MG TABLET (FP) PO SCH (09:51)
[2021-07-03] MEDS: PRENATAL VITAMINS W/ FOLIC ACID TABLET (FP) PO SCH (09:51)
[2021-07-03] MEDS: FOLIC ACID 1 MG TABLET (FP) PO SCH (09:51)
[2021-07-03] MEDS: NICOTINE 7 MG/24 HOURS TOPICAL PATCH TD SCH (09:51)
[2021-07-03] MEDS: THIAMINE HCL 100 MG TABLET (FP) PO SCH (21:22)
[2021-07-03] MEDS: MELATONIN 5 MG TABLETS PO SCH (21:22)
[2021-07-03] MEDS: OLANZapine 10 MG TABLET PO SCH (21:22)
[2021-07-03] MEDS: LIDOCAINE PATCH REMOVAL MC SCH (21:22)
[2021-07-03] MEDS: INSULIN (LEVEMIR) 100 UNITS/ML UNITS SQ SCH (21:24)
[2021-07-04] MEDS: GABAPENTIN 300 MG CAPSULE PO SCH ×3 (06:18→21:31)
[2021-07-04] MEDS ORDERED: INSULIN (NOVOLOG) ASPART 100 UNITS/ML 10ML VIAL ONE ×4 (07:20→21:36)
[2021-07-04] MEDS: INSULIN SLIDING SCALE (NOVOLOG) 1 VIAL SQ SCH ×4 (07:59→21:38)
[2021-07-04] MEDS: SERTRALINE HCL 50 MG TABLET (FP) PO SCH (09:37)
[2021-07-04] MEDS: FOLIC ACID 1 MG TABLET (FP) PO SCH (09:37)
[2021-07-04] MEDS: PRENATAL VITAMINS W/ FOLIC ACID TABLET (FP) PO SCH (09:37)
[2021-07-04] MEDS: LIDOCAINE 5% TOPICAL PATCH TP SCH (09:37)
[2021-07-04] MEDS: NICOTINE 7 MG/24 HOURS TOPICAL PATCH TD SCH (09:44)
[2021-07-04] MEDS: MELATONIN 5 MG TABLETS PO SCH (21:31)
[2021-07-04] MEDS: LIDOCAINE PATCH REMOVAL MC SCH (21:31)
[2021-07-04] MEDS: OLANZapine 10 MG TABLET PO SCH (21:31)
[2021-07-04] MEDS: THIAMINE HCL 100 MG TABLET (FP) PO SCH (21:32)
[2021-07-04] MEDS: INSULIN (LEVEMIR) 100 UNITS/ML UNITS SQ SCH (21:38)
[2021-07-05] MEDS: GABAPENTIN 300 MG CAPSULE PO SCH ×3 (06:44→21:21)
[2021-07-05] MEDS: INSULIN SLIDING SCALE (NOVOLOG) 1 VIAL SQ SCH ×4 (07:03→21:22)
[2021-07-05] MEDS: SERTRALINE HCL 50 MG TABLET (FP) PO SCH (09:54)
[2021-07-05] MEDS: FOLIC ACID 1 MG TABLET (FP) PO SCH (09:55)
[2021-07-05] MEDS: LIDOCAINE 5% TOPICAL PATCH TP SCH (09:55)
[2021-07-05] MEDS: PRENATAL VITAMINS W/ FOLIC ACID TABLET (FP) PO SCH (09:55)
[2021-07-05] MEDS: NICOTINE 7 MG/24 HOURS TOPICAL PATCH TD SCH (09:56)
[2021-07-05] MEDS ORDERED: INSULIN (NOVOLOG) ASPART 100 UNITS/ML 10ML VIAL ONE ×3 (12:27→21:44)
[2021-07-05] MEDS: MELATONIN 5 MG TABLETS PO SCH (21:19)
[2021-07-05] MEDS: THIAMINE HCL 100 MG TABLET (FP) PO SCH (21:19)
[2021-07-05] MEDS: OLANZapine 10 MG TABLET PO SCH (21:21)
[2021-07-05] MEDS: INSULIN (LEVEMIR) 100 UNITS/ML UNITS SQ SCH (21:23)
[2021-07-05] MEDS: LIDOCAINE PATCH REMOVAL MC SCH (21:23)
[2021-07-05] MEDS ORDERED: INSULIN (LEVEMIR) 100 UNITS/ML UNITS SQ ONE (21:44)
[2021-07-06] MEDS: GABAPENTIN 300 MG CAPSULE PO SCH ×3 (06:26→21:05)
[2021-07-06] MEDS: INSULIN SLIDING SCALE (NOVOLOG) 1 VIAL SQ SCH ×4 (07:48→21:07)
[2021-07-06] MEDS ORDERED: INSULIN (NOVOLOG) ASPART 100 UNITS/ML 10ML VIAL ONE ×2 (07:49→12:01)
[2021-07-06] MEDS: SERTRALINE HCL 50 MG TABLET (FP) PO SCH (10:00)
[2021-07-06] MEDS: PRENATAL VITAMINS W/ FOLIC ACID TABLET (FP) PO SCH (10:00)
[2021-07-06] MEDS: NICOTINE 7 MG/24 HOURS TOPICAL PATCH TD SCH (10:00)
[2021-07-06] MEDS: LIDOCAINE 5% TOPICAL PATCH TP SCH (10:00)
[2021-07-06] MEDS: FOLIC ACID 1 MG TABLET (FP) PO SCH (10:00)
[2021-07-06] MEDS: MELATONIN 5 MG TABLETS PO SCH (21:04)
[2021-07-06] MEDS: THIAMINE HCL 100 MG TABLET (FP) PO SCH (21:04)
[2021-07-06] MEDS: OLANZapine 10 MG TABLET PO SCH (21:05)
[2021-07-06] MEDS: INSULIN (LEVEMIR) 100 UNITS/ML UNITS SQ SCH (21:07)
[2021-07-06] MEDS: LIDOCAINE PATCH REMOVAL MC SCH (21:08)
[2021-07-07] MEDS: GABAPENTIN 300 MG CAPSULE PO SCH ×3 (06:09→21:08)
[2021-07-07] MEDS: INSULIN SLIDING SCALE (NOVOLOG) 1 VIAL SQ SCH ×4 (06:31→21:09)
[2021-07-07] MEDS: LIDOCAINE 5% TOPICAL PATCH TP SCH (10:11)
[2021-07-07] MEDS: SERTRALINE HCL 50 MG TABLET (FP) PO SCH (10:11)
[2021-07-07] MEDS: PRENATAL VITAMINS W/ FOLIC ACID TABLET (FP) PO SCH (10:11)
[2021-07-07] MEDS: NICOTINE 7 MG/24 HOURS TOPICAL PATCH TD SCH (10:11)
[2021-07-07] MEDS: FOLIC ACID 1 MG TABLET (FP) PO SCH (10:11)
[2021-07-07] MEDS ORDERED: INSULIN (NOVOLOG) ASPART 100 UNITS/ML 10ML VIAL ONE ×3 (12:06→21:47)
[2021-07-07] MEDS: MELATONIN 5 MG TABLETS PO SCH (21:08)
[2021-07-07] MEDS: THIAMINE HCL 100 MG TABLET (FP) PO SCH (21:08)
[2021-07-07] MEDS: OLANZapine 10 MG TABLET PO SCH (21:08)
[2021-07-07] MEDS: INSULIN (LEVEMIR) 100 UNITS/ML UNITS SQ SCH (21:10)
[2021-07-07] MEDS: LIDOCAINE PATCH REMOVAL MC SCH (21:11)
[2021-07-07] MEDS ORDERED: INSULIN (LEVEMIR) 100 UNITS/ML UNITS SQ ONE (21:46)
[2021-07-08] MEDS: GABAPENTIN 300 MG CAPSULE PO SCH ×3 (06:20→21:07)
[2021-07-08 06:31] VITALS: TEMP 97.1
[2021-07-08] MEDS: INSULIN SLIDING SCALE (NOVOLOG) 1 VIAL SQ SCH ×4 (06:31→21:06)
[2021-07-08] MEDS: LIDOCAINE 5% TOPICAL PATCH TP SCH (09:58)
[2021-07-08] MEDS: NICOTINE 7 MG/24 HOURS TOPICAL PATCH TD SCH (09:58)
[2021-07-08] MEDS: SERTRALINE HCL 50 MG TABLET (FP) PO SCH (09:58)
[2021-07-08] MEDS: PRENATAL VITAMINS W/ FOLIC ACID TABLET (FP) PO SCH (09:58)
[2021-07-08] MEDS ORDERED: INSULIN (NOVOLOG) ASPART 100 UNITS/ML 10ML VIAL ONE ×2 (11:54→16:34)
[2021-07-08] MEDS: FOLIC ACID 1 MG TABLET (FP) PO SCH (11:55)
[2021-07-08] MEDS: INSULIN (LEVEMIR) 100 UNITS/ML UNITS SQ SCH (21:06)
[2021-07-08] MEDS: LIDOCAINE PATCH REMOVAL MC SCH (21:07)
[2021-07-08] MEDS: MELATONIN 5 MG TABLETS PO SCH (21:07)
[2021-07-08] MEDS: OLANZapine 10 MG TABLET PO SCH (21:07)
[2021-07-08] MEDS: THIAMINE HCL 100 MG TABLET (FP) PO SCH (21:08)
[2021-07-09 06:18] VITALS: BP 151/89; PULSE 89
[2021-07-09] MEDS: GABAPENTIN 300 MG CAPSULE PO SCH (06:20)
[2021-07-09] MEDS ORDERED: INSULIN (NOVOLOG) ASPART 100 UNITS/ML 10ML VIAL ONE (07:17)
[2021-07-09] MEDS: INSULIN SLIDING SCALE (NOVOLOG) 1 VIAL SQ SCH (07:52)
[2021-07-09] MEDS: LIDOCAINE 5% TOPICAL PATCH TP SCH (09:25)
[2021-07-09] MEDS: FOLIC ACID 1 MG TABLET (FP) PO SCH (09:25)
[2021-07-09] MEDS: SERTRALINE HCL 50 MG TABLET (FP) PO SCH (09:26)
[2021-07-09] MEDS: NICOTINE 7 MG/24 HOURS TOPICAL PATCH TD SCH (09:26)
[2021-07-09] MEDS: PRENATAL VITAMINS W/ FOLIC ACID TABLET (FP) PO SCH (09:26)
== END 2021-07-09 09:30 | disposition home or self-care (01) | DRG 772 ==
LOC: YASAS 15:05 → Y3E 17:14
PROVIDERS: ADMIT Allergy & Immunology; ATTEND Allergy & Immunology
PROC: HZ42ZZZ Group Counseling for Substance Abuse Treatment, Cognitive-Behavioral (ICD-10-PCS; principal; 2021-06-26)
DX: F10.20 Alcohol dependence, uncomplicated (principal); F17.210 Nicotine dependence, cigarettes, uncomplicated; F20.9 Schizophrenia, unspecified; F10.282 Alcohol dependence with alcohol-induced sleep disorder; F32.A Depression, unspecified; E11.40 Type 2 diabetes mellitus with diabetic neuropathy, unspecified; Z79.4 Long term (current) use of insulin; K86.0 Alcohol-induced chronic pancreatitis; K70.10 Alcoholic hepatitis without ascites; Z28.310 Unvaccinated for COVID-19; Z91.51 Personal history of suicidal behavior; Z56.0 Unemployment, unspecified; Z59.01 Sheltered homelessness
CPT/HCPCS: 82962; 87811; C9803-CS; U0003; U0005

== ENCOUNTER 2021-09-09 08:35 | Inpatient (IN) | payer OTHER ==
[2021-09-09 09:55] VITALS: BMI 21.7
[2021-09-09] MEDS ORDERED: NICOTINE 10 MG CARTRIDGE (INHALER) IH PRN (10:49)
[2021-09-09] MEDS ORDERED: ACETAMINOPHEN 325 MG TABLET (FP) PO PRN ×2 (10:49)
[2021-09-09] MEDS ORDERED: diazePAM 5 MG TABLET PO PRN (10:49)
[2021-09-09] MEDS ORDERED: IBUPROFEN 400 MG TABLET (FP) PO PRN (10:49)
[2021-09-09] MEDS ORDERED: MAGNESIUM CITRATE 300 ML BOTTLE PO PRN (10:49)
[2021-09-09] MEDS ORDERED: MAG HYDROX/AL HYDROX/SIMETH 30 ML UNIT-DOSE CUP PO PRN (10:49)
[2021-09-09] MEDS ORDERED: METHOCARBAMOL 500 MG TABLET PO PRN (10:49)
[2021-09-09] MEDS ORDERED: LOPERAMIDE HCL 2 MG CAPSULE PO PRN (10:49)
[2021-09-09] MEDS ORDERED: DICYCLOMINE HCL 10 MG CAPSULE PO PRN (10:49)
[2021-09-09] MEDS ORDERED: BENZOCAINE/MENTHOL (CHLORASEPTIC ) LOZENGE MM PRN (10:49)
[2021-09-09] MEDS ORDERED: MAGNESIUM HYDROX 2400MG/30ML ORAL SUSPENSION 30 ML CUP PO PRN (10:49)
[2021-09-09] MEDS ORDERED: ONDANSETRON *ODT* 4 MG TABLET SL PRN (10:49)
[2021-09-09] MEDS ORDERED: BISMUTH SUBSALICYLATE 262 MG/15 ML BTL PO PRN (10:49)
[2021-09-09] MEDS ORDERED: IBUPROFEN 600 MG TABLET (FP) PO PRN (10:49)
[2021-09-09] MEDS ORDERED: diazePAM 5 MG TABLET PO SCH (11:00)
[2021-09-09] MEDS ORDERED: LORazepam 1 MG TABLET PO PRN (11:06)
[2021-09-09] MEDS: INSULIN (NOVOLOG) ASPART 100 UNITS/ML 10ML VIAL SQ SCH ×2 (12:17→18:17)
[2021-09-09] MEDS: LORazepam 2 MG TABLET PO SCH ×3 (12:21→22:07)
[2021-09-09] MEDS: PRENATAL VITAMINS W/ FOLIC ACID TABLET (FP) PO SCH (12:21)
[2021-09-09 14:33] LABS: HEMATOCRIT 38.4 % (35.4-49); HEMOGLOBIN 12.7 GM/dL (11.7-16.9); MCH 30.8 pg (25.7-33.7); MEAN CELL VOLUME 93.4 fl (80-96); PLATELET COUNT 154 10^3/uL (134-434); RBC 4.11 M/mm3 (4.00-5.60); RDW 18.4 % (11.9-15.9); WHITE BLOOD COUNT 4.4 K/mm3 (4.0-10.0)
[2021-09-09] MEDS: GABAPENTIN 300 MG CAPSULE PO SCH ×2 (14:50→22:07)
[2021-09-09] MEDS: hydrOXYzine PAMOATE 25 MG CAPSULE (FP) PO SCH ×3 (14:50→22:07)
[2021-09-09 15:36] LABS: HIV INTERPRETATION NEGATIVE (NEGATIVE)
[2021-09-09 15:38] LABS: BLOOD UREA NITROGEN 8.1 mg/dL (7-18); CALCIUM 9.3 mg/dL (8.5-10.1)
[2021-09-09 15:39] LABS: ALBUMIN 3.7 g/dl (3.4-5.0)
[2021-09-09 15:43] LABS: BILIRUBIN,TOTAL 0.5 mg/dL (0.2-1)
[2021-09-09] MEDS: OLANZapine 10 MG TABLET PO SCH (22:06)
[2021-09-09] MEDS: MELATONIN 5 MG TABLETS PO SCH (22:06)
[2021-09-09] MEDS: THIAMINE HCL 100 MG TABLET (FP) PO SCH (22:07)
[2021-09-09] MEDS: INSULIN (LEVEMIR) 100 UNITS/ML UNITS SQ SCH (22:51)
[2021-09-10] MEDS: GABAPENTIN 300 MG CAPSULE PO SCH ×3 (05:23→22:04)
[2021-09-10] MEDS: hydrOXYzine PAMOATE 25 MG CAPSULE (FP) PO SCH ×5 (05:24→22:04)
[2021-09-10] MEDS: LORazepam 2 MG TABLET PO SCH ×4 (05:24→22:05)
[2021-09-10] MEDS: INSULIN (NOVOLOG) ASPART 100 UNITS/ML 10ML VIAL SQ SCH ×3 (07:25→17:43)
[2021-09-10] MEDS: SERTRALINE HCL 50 MG TABLET (FP) PO SCH (10:34)
[2021-09-10] MEDS: PRENATAL VITAMINS W/ FOLIC ACID TABLET (FP) PO SCH (10:34)
[2021-09-10] MEDS: NICOTINE 7 MG/24 HOURS TOPICAL PATCH TD SCH (10:40)
[2021-09-10] MEDS ORDERED: INSULIN SLIDING SCALE (NOVOLOG) 1 VIAL SQ ONE ×2 (12:09→15:02)
[2021-09-10] MEDS: MELATONIN 5 MG TABLETS PO SCH (22:03)
[2021-09-10] MEDS: OLANZapine 10 MG TABLET PO SCH (22:04)
[2021-09-10] MEDS: THIAMINE HCL 100 MG TABLET (FP) PO SCH (22:04)
[2021-09-10] MEDS: INSULIN (LEVEMIR) 100 UNITS/ML UNITS SQ SCH (22:04)
[2021-09-11] MEDS ORDERED: diazePAM 5 MG TABLET PO SCH (06:00)
[2021-09-11] MEDS: LORazepam 1 MG TABLET PO SCH ×4 (06:08→22:27)
[2021-09-11] MEDS: GABAPENTIN 300 MG CAPSULE PO SCH ×3 (06:09→22:27)
[2021-09-11] MEDS: hydrOXYzine PAMOATE 25 MG CAPSULE (FP) PO SCH ×5 (06:09→22:27)
[2021-09-11] MEDS: INSULIN (NOVOLOG) ASPART 100 UNITS/ML 10ML VIAL SQ SCH ×3 (08:49→18:32)
[2021-09-11] MEDS: PRENATAL VITAMINS W/ FOLIC ACID TABLET (FP) PO SCH (10:08)
[2021-09-11] MEDS: NICOTINE 7 MG/24 HOURS TOPICAL PATCH TD SCH (10:09)
[2021-09-11] MEDS: SERTRALINE HCL 50 MG TABLET (FP) PO SCH (10:09)
[2021-09-11] MEDS ORDERED: INSULIN SLIDING SCALE (NOVOLOG) 1 VIAL SQ ONE (11:15)
[2021-09-11] MEDS: INSULIN (LEVEMIR) 100 UNITS/ML UNITS SQ SCH (21:20)
[2021-09-11] MEDS: MELATONIN 5 MG TABLETS PO SCH (22:27)
[2021-09-11] MEDS: THIAMINE HCL 100 MG TABLET (FP) PO SCH (22:27)
[2021-09-11] MEDS: OLANZapine 10 MG TABLET PO SCH (22:28)
[2021-09-12] MEDS ORDERED: LORazepam 0.5 MG TABLET PO PRN
[2021-09-12] MEDS: hydrOXYzine PAMOATE 25 MG CAPSULE (FP) PO SCH ×5 (05:21→22:18)
[2021-09-12] MEDS: LORazepam 0.5 MG TABLET PO SCH ×4 (05:21→23:18)
[2021-09-12] MEDS: GABAPENTIN 300 MG CAPSULE PO SCH ×3 (05:21→22:18)
[2021-09-12] MEDS ORDERED: diazePAM 5 MG TABLET PO SCH (06:00)
[2021-09-12] MEDS: INSULIN (NOVOLOG) ASPART 100 UNITS/ML 10ML VIAL SQ SCH ×2 (07:28→12:25)
[2021-09-12] MEDS: PRENATAL VITAMINS W/ FOLIC ACID TABLET (FP) PO SCH (11:02)
[2021-09-12] MEDS: NICOTINE 7 MG/24 HOURS TOPICAL PATCH TD SCH (11:02)
[2021-09-12] MEDS: SERTRALINE HCL 50 MG TABLET (FP) PO SCH (11:03)
[2021-09-12] MEDS ORDERED: INSULIN SLIDING SCALE (NOVOLOG) 1 VIAL SQ ONE (16:50)
[2021-09-12] MEDS: INSULIN SLIDING SCALE (NOVOLOG) 1 VIAL SQ SCH (17:22)
[2021-09-12] MEDS: MELATONIN 5 MG TABLETS PO SCH (22:18)
[2021-09-12] MEDS: OLANZapine 10 MG TABLET PO SCH (22:18)
[2021-09-12] MEDS: THIAMINE HCL 100 MG TABLET (FP) PO SCH (22:19)
[2021-09-12] MEDS: INSULIN (LEVEMIR) 100 UNITS/ML UNITS SQ SCH (22:19)
[2021-09-13] MEDS ORDERED: LORazepam 0.5 MG TABLET PO ONE (05:00)
[2021-09-13] MEDS: GABAPENTIN 300 MG CAPSULE PO SCH ×3 (05:21→22:04)
[2021-09-13] MEDS: hydrOXYzine PAMOATE 25 MG CAPSULE (FP) PO SCH ×5 (05:21→22:04)
[2021-09-13] MEDS ORDERED: diazePAM 5 MG TABLET PO ONE (06:00)
[2021-09-13] MEDS: INSULIN SLIDING SCALE (NOVOLOG) 1 VIAL SQ SCH ×3 (07:03→17:37)
[2021-09-13] MEDS: NICOTINE 7 MG/24 HOURS TOPICAL PATCH TD SCH (10:19)
[2021-09-13] MEDS: PRENATAL VITAMINS W/ FOLIC ACID TABLET (FP) PO SCH (10:20)
[2021-09-13] MEDS: SERTRALINE HCL 50 MG TABLET (FP) PO SCH (10:20)
[2021-09-13] MEDS: INSULIN (LEVEMIR) 100 UNITS/ML UNITS SQ SCH (22:02)
[2021-09-13] MEDS: MELATONIN 5 MG TABLETS PO SCH (22:03)
[2021-09-13] MEDS: OLANZapine 10 MG TABLET PO SCH (22:04)
[2021-09-13] MEDS: THIAMINE HCL 100 MG TABLET (FP) PO SCH (22:04)
[2021-09-14] MEDS: GABAPENTIN 300 MG CAPSULE PO SCH (05:25)
[2021-09-14] MEDS: hydrOXYzine PAMOATE 25 MG CAPSULE (FP) PO SCH ×2 (05:25→10:20)
[2021-09-14] MEDS: INSULIN SLIDING SCALE (NOVOLOG) 1 VIAL SQ SCH ×2 (06:46→12:10)
[2021-09-14] MEDS ORDERED: INSULIN SLIDING SCALE (NOVOLOG) 1 VIAL SQ ONE (06:46)
[2021-09-14] MEDS: SERTRALINE HCL 50 MG TABLET (FP) PO SCH (10:20)
[2021-09-14] MEDS: NICOTINE 7 MG/24 HOURS TOPICAL PATCH TD SCH (10:20)
[2021-09-14] MEDS: PRENATAL VITAMINS W/ FOLIC ACID TABLET (FP) PO SCH (10:20)
[2021-09-14 11:08] VITALS: BP 105/68; PULSE 103; TEMP 97.3
== END 2021-09-14 12:39 | disposition home or self-care (01) | DRG 775 ==
LOC: YASAS 08:35 → Y3N 11:11
PROVIDERS: ADMIT Allergy & Immunology; ATTEND Surgery
PROC: HZ2ZZZZ Detoxification Services for Substance Abuse Treatment (ICD-10-PCS; principal; 2021-09-09)
DX: F10.230 Alcohol dependence with withdrawal, uncomplicated (principal); F17.210 Nicotine dependence, cigarettes, uncomplicated; F20.9 Schizophrenia, unspecified; E11.65 Type 2 diabetes mellitus with hyperglycemia; Z79.4 Long term (current) use of insulin; K86.0 Alcohol-induced chronic pancreatitis; J44.9 Chronic obstructive pulmonary disease, unspecified; R74.8 Abnormal levels of other serum enzymes; Z87.828 Personal history of other (healed) physical injury and trauma; Z28.310 Unvaccinated for COVID-19; Z59.02 Unsheltered homelessness; Z91.014 Allergy to mammalian meats
CPT/HCPCS: 36415; 80053; 82962; 83735; 85027; 86780; 87389; 87811; C9803-CS; U0003; U0005